=== PATIENT | female | born 1990 | race Caucasian/White ===

== ENCOUNTER → 2017-11-23 17:09 | Outpatient (CLI) | payer OTHER, SELFPAY ==
[2017-12-01 14:32] LABS: Testosterone Free 0.9 pg/mL (0.0-4.2)
== END ==
PROVIDERS: Visit Provider Obstetrics & Gynecology Gynecology
DX: N97.0 Female infertility associated with anovulation (principal)
CPT/HCPCS: 36415; 84402

== ENCOUNTER → 2017-11-24 17:13 | Outpatient (CLI) | payer OTHER, SELFPAY ==
[2017-11-24 18:38] LABS: hCG Titer Quant., Serum 52 mIU/mL (<9 non-preg)
== END ==
PROVIDERS: Visit Provider Obstetrics & Gynecology Gynecology
DX: Z34.01 Encounter for supervision of normal first pregnancy, first trimester (principal)
CPT/HCPCS: 36415; 84702; 86900

== ENCOUNTER → 2017-11-26 17:16 | Outpatient (CLI) | payer OTHER, SELFPAY ==
[2017-11-26 17:58] LABS: hCG Titer Quant., Serum 63 mIU/mL (<9 non-preg)
== END ==
PROVIDERS: Visit Provider Obstetrics & Gynecology Gynecology
DX: Z34.01 Encounter for supervision of normal first pregnancy, first trimester (principal)
CPT/HCPCS: 36415; 84702

== ENCOUNTER 2017-11-26 18:01 | Emergency (ER) | payer OTHER, SELFPAY ==
[2017-11-26 18:02] VITALS: BP 114/69; PULSE 82; RESP 16; TEMP 36.6; O2SAT 97; BMI 31.8
--- NOTE | 2017-11-26 19:40 | US_ITS ---
STUDY: FIRST TRIMESTER OBSTETRICAL ULTRASOUND REASON FOR EXAM: Female, 27 years old. Vaginal bleeding LMP: October 22, 2017 TECHNIQUE: Transvaginal real-time imaging with ramsey scale image documentation. PRIOR ULTRASOUND: None. FINDINGS: There is no demonstrated intrauterine gestational sac. The estimated gestation age (EGA) by LMP is 5 weeks, 0 days. The estimated date of delivery (MARYANNE) by LMP is 07/29/2018. The uterus measures 7.2 x 5.1 x 4.2 cm. There is no demonstrated uterine fibroid. The cervix is closed. Endometrial thickness is 9 mm and striated. The right ovary measures 3.6 x 3.0 x 2.0 cm. There is no right ovarian cyst. There is no visualized right adnexal mass or complex lesion. The left ovary measures 4.4 x 2.4 x 2.4 cm. There is no left ovarian cyst. There is no visualized left adnexal mass or complex lesion. There is minimal fluid in the cul de sac. US/Transvaginal w/Preg US IMPRESSION: No visualized intrauterine gestation. Normal appearing midcycle endometrium. Normal ovaries bilaterally without dominant mass or cyst. No demonstrated adnexal masses. Minimal free fluid. Electronically Signed: Sue Tucker MD at 20:54 EST , Service support ,
[2017-11-26 19:43] LABS: hCG Titer Quant., Serum 68 mIU/mL (<9 non-preg)
[2017-11-26 20:43] VITALS: BP 111/69; PULSE 63; RESP 18; O2SAT 99
[2017-11-26 22:08] VITALS: RESP 20
--- NOTE | 2017-11-26 22:10 | ED.RN ---
DR GONCALVES AWARE THAT THE PT IS PASSING CLOTS AND SOME BLOOD.
--- NOTE | 2017-11-26 22:35 | ED.VISSUMM ---
- ER Visit Summary Date of Service: 11/26/17 Chief Complaint: Right inguinal/bilateral lower abdominal crampy pain with vaginal bleeding. History of Present Illness: The patient is a 27 F who presents with vaginal bleeding and pain. This is her first . She did have an appointment with Dr. Smiley. Blood work was obtained earlier this week i.e. November 24. She denies any orthostatic symptoms. She denies pain referred her shoulder. She has no history of endometriosis, ovarian cyst, STD or salpingitis. She does complain of nausea without vomiting diarrhea. She does complain of frequency without dysuria, urgency or hematuria. She does report breast tenderness. She did have a positive test. Please read written note for complete detail Physical Examination: Is a pleasant 27-year-old who appears in no obvious discomfort. Vital signs are normal. Head is atraumatic normocephalic. Pupils are equal round reactive. Extraocular muscles are intact. TMs are pearly white with landmarks noted. Nares patent with no drainage. Posterior pharynx without erythema or exudate. Uvula is midline. There is no dysphonia or dysphasia. Trachea is midline. There is no stridor with auscultation of the neck. Heart is regular without murmur, gallop or rub. S1 and S2 are normal. Lungs are clear to auscultation with good movement of air bilaterally. Abdomen is remarkable for minimal tenderness on the right side. There is no guarding or rebound tenderness. Pelvic exam reveals normal external genitalia. There is approximately 3-5 cc of old blood in the vagina. There is no active bleeding at this time. The office is [place]. Negative Clarence sign. Uterus is normal size. Test Results: Quantitative hCG is 68. Prior was 52. Ultrasound is negative for or any acute abnormality Emergency Department Course and Treatment: Since patient is 5 weeks by date hCG was obtained prior records were obtained and compared today's hCG to prior. Will obtain ultrasound to rule out ectopic. Treatment Plan: Dr. Love her physician was contacted and informed of patient's quantitative hCG and ultrasound results. She would like for her to call to be seen on Wednesday or Wednesday Disposition: Discharge to home Impression: 1. Vaginal bleeding first trimester 2. Spontaneous AB, suspect complete This note was generated with [employer] software. It may contain incorrect words, spelling, and punctuation that were not noted in review of the chart prior to signing ED Disposition - Plan for ED Patient: Disposition: Home or Assisted Living Chief Complaint: Vag Bld, Preg Instructions: ED Miscarriage Poss Referrals: Care Physician,No Primary [Primary Care Provider] - Darcie Love MD [STAFF PHYSICIAN] - 3-5 Days Additional Instructions: Dr. Darcie Love would like for you to call the office to be seen on Wednesday or Wednesday
[2017-11-26 22:47] VITALS: BP 110/68; PULSE 82; RESP 20; O2SAT 98
== END 2017-11-26 22:47 | disposition home or self-care (01) ==
PROVIDERS: Emergency Provider Emergency Medicine
DX: O03.9 Complete or unspecified spontaneous abortion without complication (principal)
CPT/HCPCS: 76817; 84702; 93976; 99283; A4216

== ENCOUNTER → 2017-11-30 10:08 | Outpatient (CLI) | payer OTHER, SELFPAY ==
[2017-11-30 11:25] LABS: hCG Titer Quant., Serum 5 mIU/mL (<9 non-preg)
== END ==
PROVIDERS: Family Provider Family Medicine; PCP Family Medicine; Visit Provider Obstetrics & Gynecology Gynecology
DX: Z34.01 Encounter for supervision of normal first pregnancy, first trimester (principal)
CPT/HCPCS: 36415; 84702

== ENCOUNTER 2019-01-06 14:33 | Emergency (ER) | payer MEDICAID, SELFPAY ==
[2019-01-06 14:35] VITALS: BP 149/87; PULSE 74; RESP 18; TEMP 36.9; O2SAT 99; BMI 30.7
--- NOTE | 2019-01-06 15:06 | CT_ITS ---
STUDY: CT ABDOMEN AND PELVIS WITHOUT CONTRAST REASON FOR EXAM: Female, 28 years old. Lower abdominal pain for 3 days RADIATION DOSAGE (If Supplied By Facility): CTDIvol = ( 10.17 ) mGy, DLP = ( 546.34 ) mGycm TECHNIQUE: Transaxial images were obtained from the dome of the diaphragm to the symphysis pubis without oral contrast, and without intravenous contrast. Sagittal and coronal images were reconstructed. Individualized dose optimization techniques were used for this CT. COMPARISON: None. FINDINGS: The visualized lung bases are unremarkable. The visualized portions of the heart are within normal limits. Normal liver. Normal gallbladder and extrahepatic biliary system. Normal spleen. Normal pancreas. Normal bilateral adrenal glands. Normal right kidney. Normal left kidney. Normal visualized stomach. No evidence for small bowel obstruction or pneumoperitoneum. There is mild diffuse ileus pattern with fecal retention noted in the colon. Minor diverticular changes in the distal descending colon without evidence for acute diverticulitis. The appendix is visualized and appears normal. Normal abdominal aorta. Normal inferior vena cava. Normal retroperitoneum. Normal urinary bladder. Small left ovarian cyst noted measuring approximately 1.16 x 1.07 cm Normal abdominal wall. Normal osseous structures. CT/Abdomen/Pelvis without Cont IMPRESSION: Mild nonspecific ileus with diffuse fecal retention in the colon Minor diverticulosis without evidence for acute epiglottitis Small left ovarian cyst Electronically Signed: Dilshad Draper MD at 16:26 EDT , Service support ,
[2019-01-06] MEDS: Ondansetron 4 MG/2 ML Vial IV (15:22)
[2019-01-06] MEDS: 0.9% Normal Saline 1,000 ML 125 ML IV (15:22)
[2019-01-06] MEDS: Morphine 4 MG/ML Syringe IV ×2 (15:22→16:30)
[2019-01-06 15:35] LABS: Bacteria 0 SEEN /hpf (None Seen); Mucous, Urine 0 SEEN /hpf (<or=2+); Red Blood Cells-Urine 0 SEEN /hpf (0-5)
[2019-01-06 15:38] LABS: Absolute Lymphocyte Count 1.98 X10^3/ul (0.83-4.51); Absolute Neutrophil Count 4.9 X10^3/uL (2.0-7.7); Basophil# 0.02 X10^3/uL; Basophil% 0.3 % (0-1); Eosinophil# 0.12 X10^3/uL; Eosinophils% 1.6 % (0-5); Hematocrit 40.4 % (37-47); Hemoglobin 13.6 g/dl (12.0-15.0); Lymphocyte # 1.98 X10^3/ul (4.0); Lymphocyte % 26.4 % (19-41); Mean Corp Hgb Conc 33.7 g/gl (32-36); Mean Corpuscular Volume 80.2 fL (81-99); Mean Platelet Vol. 9.7 fl (6.2-12.0); Monocyte# 0.52 X10^3/uL; Monocyte% 6.9 % (0-10); Neutrophil # 4.86 X10^3/uL (2.7-7.7); Neutrophil % 64.8 % (47-70); Platelet Count 323 K/mm3 (150-450); RBC Distribution Width CV 14.4 % (11.6-14.6); RBC Distribution Width SD 41.8 fl (35.1-43.9); Red Blood Count 5.04 M/mm3 (4.2-5.4); White Blood Count 7.5 K/mm3 (4.4-11.0)
[2019-01-06 15:42] LABS: Color, Urine Yellow (Yellow); Glucose, Dipstick Normal (Normal); Ketone-Dipstick Negative (Negative); Leukocyte Esterase-Dipstick 25 /ul (Negative); Nitrite-Dipstick Negative (Negative); Occult Blood-Urine Negative /ul (Negative); Protein-Dipstick Negative (Negative); Specific Gravity, Urine 1.005 (1.002-1.030); Urine Bilirubin Dipstick Negative (Negative); Urine Clarity Clear (Clear); Urine Urobilinogen Normal (Normal)
--- NOTE | 2019-01-06 15:43 | ED.DCSUM_ITS ---
- ER Visit Summary Date of Service: 01/06/19 Chief Complaint: [Abdominal pain] History of Present Illness: The patient is a 28 F [presents the emergency department abdominal pain for the last 2 days. Patient states that the pain started after her period ended. Patient states that she was about 6 days late on her menstrual period. Patient took 2 tests at home they were both negative. Patient states she is a decreased appetite. She denies any fever. She denies urinary symptoms. Patient is G1, P0. She has a history of PCOS. No prior surgeries. She denies any diarrhea. She denies any blood in her stool or black tarry stool. Patient has had nausea but no vomiting. Patient currently rates her pain an 8 out of 10.] Physical Examination: [HEENT-PERRLA, EOMI. Cranial nerves II through XII grossly intact. TMs clear. Mucous membranes moist. No adenopathy. Cardiovascular-regular rate and rhythm without murmur or ectopy Lungs-clear to auscultation, chest wall stable without crepitus or subcu emphysema Abdomen-normoactive bowel sounds, soft. Patient has tenderness palpation of the right lower quadrant with some guarding. There is no rebound, rigidity, cranial signs. Extremities-intact ?4, normal range of motion, normal pulses, atraumatic] Test Results: [CBC with differential obtained showing a 7.5, hemoglobin 13.6, hematocrit 40, placed 323. Chemistries were unremarkable. LFTs were normal. Lipase normal. Urinalysis normal. hCG was negative. CT scan abdomen pelvis without contrast showed some questionable ileus and some diverticulosis but no diverticulitis. The appendix was visualized and was normal.] Emergency Department Course and Treatment: [Patient is been given morphine and Zofran. She had good pain relief initially but started having increased discomfort and was given a second dose of morphine.] Treatment Plan: [Patient will be given a prescription for Bentyl and [place]. Patient advised to follow-up with her CUSTOMER DEVELOPMENT MANAGER as well as primary care physician medical social consultant for no doc within next 3 to 5 days. Patient to return if increasing abdominal pain, fever, vomiting, or condition should worsen anyway.] Disposition: [Discharged home in stable condition] Impression: [Abdominal pain-etiology uncertain] This note was generated with [employer] software. It may contain incorrect words, spelling, and punctuation that were not noted in review of the chart prior to signing ED Disposition - Plan for ED Patient: Referrals: Herrera Wan MD [Primary Care Provider] -
[2019-01-06 15:45] LABS: POSITIVE COUNT NO; POSITIVE DIFFERENTIAL NO; POSITIVE MORPHOLOGY NO
[2019-01-06 15:57] LABS: Internal QC Validated? YES +Cl - CLEAR BKGD; Pregnancy, Serum, hCG Quali. NEGATIVE Negative; Squamous Epithelial Cells - UA 0-5 SEEN /hpf (5-10); White Blood Cells 0-5 SEEN /hpf (0-5)
[2019-01-06 16:06] LABS: ALB/GLOB Ratio 1.2 RATIO (0.9-2.4); AST(SGOT) 17 U/L (15-37); Alanine Aminotransfer ALT/SGPT 19 U/L (13-56); Albumin, Serum 4.3 g/dL (3.2-5.0); Alkaline Phosphatase 84 U/L (45-117); Anion Gap 6 (5-15); BUN 6 mg/dL (7-18); BUN/Creat Ratio 6.7 RATIO (10-20); Chloride 107 mmol/L (98-107); Creatinine, Serum 0.89 mg/dL (0.55-1.02); EST Glomerular Filtration Rate 81 mL/min (>60); Est Glom Filt Rate - Afr Amer 98 mL/min (>60); Estimated Creatinine Clearance 89.67 ml/min; Globulin 3.6 g/dL (2.2-4.2); Glucose 84 mg/dL (74-106); Lipase 96 U/L (73-393); Protein, Total 7.9 g/dL (6.4-8.2); Sodium Level 141 mmol/L (136-145)
--- NOTE | 2019-01-06 16:34 | ED.DEP ---
ED Disposition - Plan for ED Patient: Instructions: ED Abdominal Pain Unkn Cause Prescriptions: Hydrocodone Bitart/Apap 5-325 [[place] 5MG-325MG] 1 tab PO Q4H PRN PRN 2 Days #10 tab PRN Reason: Pain Dicyclomine HCl [Bentyl] 20 mg PO TIDAC #20 cap Referrals: Herrera Wan MD [Primary Care Provider] - 3-5 Days Darcie Love MD [STAFF PHYSICIAN] - 3-5 Days
[2019-01-06 16:46] VITALS: BP 119/79; PULSE 78; RESP 16; O2SAT 98
== END 2019-01-06 17:07 | disposition home or self-care (01) ==
LOC: ED 15:43
PROVIDERS: Emergency Provider Emergency Medicine; Family Provider Family Medicine; PCP Family Medicine
DX: R10.9 Unspecified abdominal pain (principal); R11.0 Nausea; K57.90 Diverticulosis of intestine, part unspecified, without perforation or abscess without bleeding; Z72.0 Tobacco use
CPT/HCPCS: 74176; 80053; 81001; 83690; 84703; 85025; 96361; 96374; 96375; 96376; 99283; J7030; A4216; J2405

== ENCOUNTER 2019-01-08 04:55 | Emergency (ER) | payer MEDICAID, SELFPAY ==
[2019-01-08 04:57] VITALS: BP 127/66; PULSE 90; RESP 22; TEMP 36.8; O2SAT 97; BMI 27.4
--- NOTE | 2019-01-08 05:08 | US_ITS ---
STUDY: ULTRASOUND OF THE FEMALE PELVIS - COMPLETE REASON FOR EXAM: Female, 28 years old. Pelvic pain. LMP: TECHNIQUE: Transvaginal TECHNICAL QUALITY: Adequate. COMPARISON: CT scan 01/06/2019. FINDINGS: The uterus is anteverted and is in a midline position. The uterus measures 7.4 x 4.8 x 2.9 cm. Normal uterine cervix. The endometrium measures 1.0 mm in thickness, and is hyperechoic. There is no demonstrated endometrial mass. There is no demonstrated myometrial mass. I.U.D. - The patient does not have an I.U.D. The right ovary is visualized. The right ovary measures 3.7 x 3.0 x 1.8 cm. There is a 1.4 cm right ovarian cyst as well as smaller cysts. There is no visualized right adnexal mass or complex lesion. There is normal arterial and normal venous vascularity. The left ovary is visualized. The left ovary measures 4.3 x 2.2 x 2.0 cm. There is a 1.6 cm left ovarian cyst, as well as smaller cysts. There is no visualized left adnexal mass or complex lesion. There is normal arterial and normal venous vascularity. There is no fluid in the cul-de-sac. The urinary bladder was not measured. Polycystic ovary disease: No. US/Transvaginal Non- IMPRESSION: 1.4 cm right ovarian cyst and 1.6 cm left ovarian cyst. Otherwise, normal exam. No evidence for acute pathology. Electronically Signed: Ramón Hopper MD at 7:32 EDT , Service support ,
[2019-01-08] MEDS: Ondansetron 4 MG/2 ML Vial IV (05:16)
[2019-01-08] MEDS: 0.9% Normal Saline 1,000 ML 999 ML IV (05:16)
[2019-01-08] MEDS: Ketorolac 30 MG/ML Syringe IV (05:18)
[2019-01-08 05:20] LABS: Absolute Neutrophil Count 7.8 X10^3/uL (2.0-7.7); Basophil# 0.03 X10^3/uL; Basophil% 0.3 % (0-1); Eosinophil# 0.14 X10^3/uL; Eosinophils% 1.2 % (0-5); Hematocrit 37.1 % (37-47); Hemoglobin 12.7 g/dl (12.0-15.0); Lymphocyte % 22.9 % (19-41); Mean Corp Hgb Conc 34.2 g/gl (32-36); Mean Corpuscular Hgb 26.8 pg (27.0-32.0); Mean Corpuscular Volume 78.3 fL (81-99); Mean Platelet Vol. 10.1 fl (6.2-12.0); Monocyte# 0.76 X10^3/uL; Monocyte% 6.7 % (0-10); Neutrophil # 7.79 X10^3/uL (2.7-7.7); Neutrophil % 68.7 % (47-70); Platelet Count 302 K/mm3 (150-450); RBC Distribution Width CV 14.2 % (11.6-14.6); RBC Distribution Width SD 39.4 fl (35.1-43.9); Red Blood Count 4.74 M/mm3 (4.2-5.4); White Blood Count 11.3 K/mm3 (4.4-11.0)
[2019-01-08 05:21] LABS: POSITIVE COUNT NO; POSITIVE DIFFERENTIAL NO; POSITIVE MORPHOLOGY NO
[2019-01-08 05:32] LABS: Anion Gap 8 (5-15); BUN 10 mg/dL (7-18); BUN/Creat Ratio 13.5 RATIO (10-20); Calcium,Total 9.1 mg/dL (8.5-10.1); Chloride 106 mmol/L (98-107); Creatinine, Serum 0.74 mg/dL (0.55-1.02); EST Glomerular Filtration Rate 100 mL/min (>60); Est Glom Filt Rate - Afr Amer 122 mL/min (>60); Estimated Creatinine Clearance 107.85 ml/min; Glucose 96 mg/dL (74-106); Potassium 3.9 mmol/L (3.5-5.1); Sodium Level 140 mmol/L (136-145)
--- NOTE | 2019-01-08 06:57 | ED.VISSUMM ---
- ER Visit Summary Date of Service: 01/08/19 Chief Complaint: Abdominal pain History of Present Illness: The patient is a 28 F who presents with abdominal pain. This been present for 2-3 days. She complains of right lower abdominal or pelvic pain. Tonight her pain was worse and she had 3 episodes of nausea and vomiting. She denies any diarrhea. She does report some urinary frequency but no dysuria urgency hematuria. She was seen in the emergency department 2 days ago and had normal laboratory studies urinalysis negative normal CT. She was discharged on [place]. Physical Examination: Afebrile vitals normal No distress Heart regular rate and rhythm Lungs are clear Abdomen soft nondistended she does have low right abdominal and pelvic tenderness no guarding no rebound Test Results: CBC BMP notable only for mild leukocytosis of 11.3. Pelvic ultrasound is pending at the time of this dictation. Emergency Department Course and Treatment: Given patient's presentation I am concerned that this is pelvic or ovarian in etiology. I suspect process such as ovarian cyst. She does have history of PCO S. Pelvic ultrasound pending at the time of this dictation. Patient signed out to the oncoming physician to follow-up on results. If ultrasound normal or shows simple ovarian cyst I do believe patient can be discharged. Treatment Plan: [] Disposition: Pending pelvic ultrasound Impression: Right pelvic pain This note was generated with [employer] dictation software. It may contain incorrect words, spelling, and punctuation that were not noted in review of the chart prior to signing ED Disposition - Plan for ED Patient: Referrals: Herrera Wan MD [Primary Care Provider] -
--- NOTE | 2019-01-08 07:00 | ED.DCSUM_ITS ---
- ER Visit Summary Date of Service: 01/08/19 Chief Complaint: Abdominal pain History of Present Illness: The patient is a 28 F who presents with abdominal pain. This been present for 2-3 days. She complains of right lower abdominal or pelvic pain. Tonight her pain was worse and she had 3 episodes of nausea and vomiting. She denies any diarrhea. She does report some urinary frequency but no dysuria urgency hematuria. She was seen in the emergency department 2 days ago and had normal laboratory studies urinalysis negative normal CT. She was discharged on [place]. Physical Examination: Afebrile vitals normal No distress Heart regular rate and rhythm Lungs are clear Abdomen soft nondistended she does have low right abdominal and pelvic tenderness no guarding no rebound Test Results: CBC BMP notable only for mild leukocytosis of 11.3. Pelvic ultrasound is pending at the time of this dictation. Emergency Department Course and Treatment: Given patient's presentation I am concerned that this is pelvic or ovarian in etiology. I suspect process such as ovarian cyst. She does have history of PCO S. Pelvic ultrasound pending at the time of this dictation. Patient signed out to the oncoming physician to follow- up on results. If ultrasound normal or shows simple ovarian cyst I do believe patient can be discharged. Treatment Plan: [] Disposition: Pending pelvic ultrasound Impression: Right pelvic pain This note was generated with [employer] dictation software. It may contain incorrect words, spelling, and punctuation that were not noted in review of the chart prior to signing ED Disposition - Plan for ED Patient: Referrals: Herrera Wan MD [Primary Care Provider] -
[2019-01-08 07:13] VITALS: BP 113/52; PULSE 55; RESP 16; O2SAT 97
--- NOTE | 2019-01-08 07:52 | ED.VISSUMM ---
- ER Visit Summary Date of Service: 01/08/19 This note was generated with [employer] dictation software. It may contain incorrect words, spelling, and punctuation that were not noted in review of the chart prior to signing ED Disposition - Plan for ED Patient: Disposition: Home or Assisted Living Instructions: ED Pelvic Pain [facility] Referrals: Darcie Love MD [STAFF PHYSICIAN] - 3-5 Days if not improving
[2019-01-08 08:05] VITALS: BP 119/59; PULSE 54; RESP 16; O2SAT 97
== END 2019-01-08 08:10 | disposition home or self-care (01) ==
PROVIDERS: Emergency Provider Emergency Medicine; Family Provider Family Medicine; PCP Family Medicine
DX: R10.2 Pelvic and perineal pain (principal); Z72.0 Tobacco use; N83.292 Other ovarian cyst, left side; N83.291 Other ovarian cyst, right side
CPT/HCPCS: 76830; 80048; 85025; 93976; 96361; 96374; 96375; 99283; J7030; A4216; J2405

== ENCOUNTER 2019-01-22 02:20 | Emergency (ER) | payer MEDICAID, SELFPAY ==
[2019-01-22 02:20] VITALS: BP 127/70; PULSE 91; RESP 16; TEMP 36.9; O2SAT 100; BMI 30.7
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
--- NOTE | 2019-01-22 03:32 | ED.RN ---
DR HART AWARE THAT PT REFUSED TYLENOL FOR PAIN.
[2019-01-22 03:49] VITALS: PULSE 79; RESP 18; O2SAT 99
== END 2019-01-22 03:47 | disposition home or self-care (01) ==
LOC: ED 02:57
PROVIDERS: Emergency Provider Emergency Medicine; Family Provider Family Medicine; PCP Family Medicine
DX: S00.83XA Contusion of other part of head, initial encounter (principal); S09.90XA Unspecified injury of head, initial encounter; S60.052A Contusion of left little finger without damage to nail, initial encounter; Y04.2XXA Assault by strike against or bumped into by another person, initial encounter; Y93.9 Activity, unspecified; Y92.9 Unspecified place or not applicable; Y99.9 Unspecified external cause status
CPT/HCPCS: 70450; 70486; 72125; 73130; 99283; A4216

== ENCOUNTER 2023-03-20 04:53 | Emergency (ER) | payer MEDICAID, SELFPAY ==
[2023-03-20 04:54] VITALS: BP 149/116; PULSE 116; RESP 26; TEMP 36.3; O2SAT 98; BMI 30.4
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
[2023-03-20] MEDS: Lidocaine 2% /Epi 1:100 (20ml) 20 ML VIAL INFILT (05:52)
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
== END 2023-03-20 06:51 | disposition home or self-care (01) ==
PROVIDERS: Emergency Provider Emergency Medicine; PCP Family Medicine; Visit Provider Emergency Medicine
DX: S01.01XA Laceration without foreign body of scalp, initial encounter (principal); Y04.8XXA Assault by other bodily force, initial encounter; F17.290 Nicotine dependence, other tobacco product, uncomplicated
CPT/HCPCS: 12032; 70450; 99284